=== PATIENT | female | born 1980 | race Caucasian/White ===

== ENCOUNTER 2017-02-27 03:38 | Emergency (ER) | payer SELFPAY ==
[2017-02-27 03:48] VITALS: BMI 38.0
--- NOTE | 2017-02-27 03:49 | DR.GENAD ---
HPI - PCP Primary Care Physician: RADHA - HPI Comment HPI Comment: PATIENT HAVE LEFT LOWER ABDOMINAL AND LOWER BACK PAIN THAT GOT WORSE TONIGHT. PAIN ASSOCIATED WITH NAUSEA. NO FEVER OS DYSURIA. - Complaint/Symptoms Chief Complaint Doctors Comments: LLQ ABD AND LOWER BACK PAIN TIMES SEVERAL HOURS. 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 - Family History History of Family Medical Conditions: Yes Family Medical History: Diabetes Mellitus, Cancer, [place], Coronary Artery Disease, Heart Failure, Sudden Cardiac , Hypertension - Social History Does patient currently use any type of tobacco product: No Have you used tobacco products in the last 12 months: No Type of Tobacco Use: None Does any household member use tobacco: No Alcohol Use: None Do you use any recreational Drugs:: No Lives With: Family Lives Where: Home - infectious screening In the last 2 months have you had wt loss of >10#?: NO Have you had fever, night sweats or hemotysis?: No Have you traveled outside the country in the last 6 months?: No Isolation: Standard ROS - Review of Systems Constitutional: No Symptoms Reported Eyes: No Symptoms Reported ENTM: No Symptoms Reported Respiratoy: No Symptoms Reported Cardiovascular: No Symptoms Reported Gastrointestinal/Abdominal: Abdominal Pain, Nausea Genitourinary: No Symptoms Reported. negative: Dysuria, Frequency, Hematuria Neurological: No Symptoms Reported Musculoskeletal: Back Pain, Muscle Pain, Back Integumentary: No Symptoms Reported Hematologic/Lymphatic: No Symptoms Reported Endocrine: No Symptoms Reported All Other Systems: Reviewed and Negative PE - Vital Signs Vitals: Temperature 98.2 F Pulse Rate [Left Brachial] 70 Pulse Rate 97 Respiratory Rate 14 Blood Pressure [Left Arm] 131/72 Blood Pressure 139/88 O2 Sat by Pulse Oximetry 94 - General Limitations: No Limitations General Appearance: Alert - Head Head Exam: Normal Inspection - Eyes Eye exam: Normal Appearance - ENT ENT Exam: Normal External Ear Exam External Ear Exam: Normal External Inspection TM/Canal Exam: Bilateral Normal Nose Exam: Normal Nose Exam Mouth Exam: Normal Inspection Throat Exam: Tonsillar Erythema - Neck Neck Exam: Normal Inspection - Chest Chest Inspection: Symmetric Chest Wall Rise - Respiratory Respiratory Exam: Normal Lung Sounds Bilat Respiratory Exam: Bilateral Clear to Auscultation - Cardiovascular Cardiovascular Exam: Regular Rate, Normal Rhythm, Normal Heart Sounds - Abdominal Exam Abdominal Exam: Normal Bowel Sounds, Soft, Tenderness Abdominal Tenderness: LLQ - Extremities Extremities Exam: Normal Inspection - Back Back Exam: Normal Inspection - Neurologic Neurological Exam: Alert, Oriented X3 - Psychiatric Psychiatric Exam: Normal Affect, Normal Mood - Skin Skin Exam: Normal Color MDM - Differential Diagnosis Differential Diagnosis: LLQ ABDOMINAL PAIN, LOWER BACK PAIN, Course - Treatment Treatment: SEE ORDERS. - Education/Counseling Education/Counseling: Patient, Family, Education Educated On: Treatment, Diagnosis, Needs for Follow Up ROR - Labs Reviewed Laboratory Results Reviewed?: Yes Result Diagrams: 02/27/17 03:55 02/27/17 03:55 Laboratory: WBC 11.2 X10^3/uL (3.6-10.0) H 02/27/17 03:55 RBC 5.01 X10^6/uL (3.5-5.4) 02/27/17 03:55 Hgb 12.4 g/dL (12.0-16.0) 02/27/17 03:55 Hct 37.4 % (36.0-47.0) 02/27/17 03:55 MCV 74.7 fL (80.0-100.0) L 02/27/17 03:55 MCH 24.7 pg (27.0-34.0) L 02/27/17 03:55 MCHC 33.0 g/dL (33.0-35.0) 02/27/17 03:55 RDW 16.2 % (11.6-16.5) 02/27/17 03:55 Plt Count 431 X10^3/uL (150.0-450.0) 02/27/17 03:55 Plt Count Comment Adequate (ADEQUATE) 02/27/17 03:55 MPV 7.8 fL (7.4-11.0) 02/27/17 03:55 Neut % 66.0 % (42.0-75.0) 02/27/17 03:55 Lymph % 26.6 % (21.0-51.0) 02/27/17 03:55 [place] % 5.1 % (0.0-13.0) 02/27/17 03:55 Eos % 1.4 % (0.9-2.9) 02/27/17 03:55 Baso % 0.9 % (0.2-1.0) 02/27/17 03:55 Neut # 7.4 x10^3/uL (2.2-4.8) H 02/27/17 03:55 Lymph # 3.0 X10^3/uL (1.3-2.9) H 02/27/17 03:55 [place] # 0.6 x10^3/uL (0.3-0.8) 02/27/17 03:55 Eos # 0.2 x10^3/uL (0.0-0.2) 02/27/17 03:55 Baso # 0.1 X10^3/uL (0.0-0.1) 02/27/17 03:55 Absolute Nucleated RBC 0.0 /100WBC 02/27/17 03:55 Plt Morphology Comment Normal (NORMAL) 02/27/17 03:55 RBC Morphology Normal (NORMAL) 02/27/17 03:55 Sodium 137 mmol/L (136-145) 02/27/17 03:55 Corrected Sodium 138 mmol/L (136-145) 02/27/17 03:55 Potassium 4.0 mmol/L (3.5-5.1) 02/27/17 03:55 Chloride 102 mmol/L (98-107) 02/27/17 03:55 Carbon Dioxide 25.9 mmol/L (21-32) 02/27/17 03:55 BUN 17 mg/dL (7-18) 02/27/17 03:55 Creatinine 0.80 mg/dL (0.55-1.02) 02/27/17 03:55 Est GFR (MDRD) Af Amer > 60 (>60) 02/27/17 03:55 Est GFR (MDRD) Non-Af > 60 (>60) 02/27/17 03:55 Glucose 162 mg/dL (65-99) H 02/27/17 03:55 Calcium 9.0 mg/dL (8.5-10.1) 02/27/17 03:55 Corrected Calcium TNP 02/27/17 03:55 Total Bilirubin 0.20 mg/dL (0.2-1.0) 02/27/17 03:55 AST 26 Units/L (15-37) 02/27/17 03:55 ALT 35 Units/L (12-78) 02/27/17 03:55 Alkaline Phosphatase 114 Units/L (46-116) 02/27/17 03:55 Total Protein 8.2 g/dL (6.4-8.2) 02/27/17 03:55 Albumin 3.8 g/dL (3.4-5.0) 02/27/17 03:55 Globulin 4.4 g/dL (2.5-4.5) 02/27/17 03:55 Albumin/Globulin Ratio 0.9 Ratio (1.1-2.1) L 02/27/17 03:55 Specimen Type Clean catch urine 02/27/17 03:53 Urine Color Yellow (YELLOW) 02/27/17 03:53 Urine Appearance Clear (CLEAR) 02/27/17 03:53 Urine pH 5.0 (5.0 - 8.0) 02/27/17 03:53 Ur Specific [place] 1.025 (1.000-1.030) 02/27/17 03:53 Urine Protein 1+ (NEGATIVE) 02/27/17 03:53 Urine Glucose (UA) Negative (NEGATIVE) 02/27/17 03:53 Urine Ketones Negative (NEGATIVE) 02/27/17 03:53 Urine Occult Blood 1+ (NEGATIVE) 02/27/17 03:53 Urine Nitrite Negative (NEGATIVE) 02/27/17 03:53 Urine Bilirubin Negative (NEGATIVE) 02/27/17 03:53 Urine Urobilinogen Normal (NORMAL) 02/27/17 03:53 Ur Leukocyte Esterase Negative (NEGATIVE) 02/27/17 03:53 Urine RBC 2-6 /HPF (NEGATIVE) 02/27/17 03:53 Urine WBC 0-3 /HPF (NEGATIVE) 02/27/17 03:53 Ur Squamous Epith Cells Few /HPF (NEGATIVE) 02/27/17 03:53 Calcium Oxalate Crystal Moderate /HPF (NEGATIVE) 02/27/17 03:53 Urine Bacteria Negative /HPF (NEGATIVE) 02/27/17 03:53 Ur Culture Indicated? No/not indicated 02/27/17 03:53 - XRAY XRAY Interpreted by: Radiologist XRAY Findings: REPORT DISCUSS WITH PATIENT. - Diagnosis Discharge Problem: Back pain - Discharge Plan Condition: Stable Prescriptions: Cyclobenzaprine HCl [FLEXERIL 10 MG *] 10 mg PO TID PRN #20 tab PRN Reason: Ibuprofen [MOTRIN TAB 800 MG *] 800 mg PO Q8H PRN #20 tab PRN Reason: Pain/Inflammation Tramadol HCl 50 mg PO Q8H PRN #20 tablet PRN Reason: - Follow ups/Referrals Follow ups/Referrals: NFD,None [Primary Care Provider] - 3 days Herman Calderon [STAFF PHYSICIAN] - 3 days - Instructions Instructions: Abdominal Pain, Adult, [id number], Back Pain, Adult, Easy-to- Read Additional Instructions: RETURN TO ED IF WORSE.
[2017-02-27] MEDS ORDERED: NS 1000 ML 1,000 ML IV ONE (03:50)
[2017-02-27] MEDS ORDERED: ZOFRAN INJ 4 MG VIAL IVP ONE (03:50)
[2017-02-27] MEDS ORDERED: TORADOL 30 MG VIAL IVP ONE (03:50)
[2017-02-27] MEDS ORDERED: NS 1000 ML 1,000 ML ONE (03:53)
[2017-02-27] MEDS ORDERED: ZOFRAN INJ 4 MG VIAL ONE (03:54)
[2017-02-27] MEDS ORDERED: TORADOL 30 MG VIAL ONE (03:54)
[2017-02-27 04:10] LABS: BILIRUBIN,URINE NEGATIVE (NEGATIVE); BLOOD/HEMOGLOBIN,URINE 1+ (NEGATIVE); GLUCOSE, URINE NEGATIVE (NEGATIVE); KETONES,URINE NEGATIVE (NEGATIVE); LEUKOCYTE ESTERASE ,URINE NEGATIVE (NEGATIVE); NITRITES,URINE NEGATIVE (NEGATIVE); PROTEIN,URINE 1+ (NEGATIVE); UROBILINOGEN,URINE NORMAL (NORMAL)
[2017-02-27 04:12] LABS: BASOPHILS # (AUTO) 0.1 X10^3/uL (0.0-0.1); BASOPHILS % (AUTO) 0.9 % (0.2-1.0); EOSINOPHILS # (AUTO) 0.2 x10^3/uL (0.0-0.2); EOSINOPHILS % (AUTO) 1.4 % (0.9-2.9); HEMATOCRIT 37.4 % (36.0-47.0); HEMOGLOBIN 12.4 g/dL (12.0-16.0); LYMPHOCYTES % (AUTO) 26.6 % (21.0-51.0); MEAN CORPUSCULAR HEMOGLOBIN 24.7 pg (27.0-34.0); MEAN CORPUSCULAR VOLUME 74.7 fL (80.0-100.0); MEAN PLATELET VOLUME 7.8 fL (7.4-11.0); MONOCYTES # (AUTO) 0.6 x10^3/uL (0.3-0.8); MONOCYTES % (AUTO) 5.1 % (0.0-13.0); NEUTROPHILS # (AUTO) 7.4 x10^3/uL (2.2-4.8); PLATELET COUNT 431 X10^3/uL (150.0-450.0); RED BLOOD COUNT 5.01 X10^6/uL (3.5-5.4); RED CELL DISTRIBUTION WIDTH 16.2 % (11.6-16.5); WHITE BLOOD COUNT 11.2 X10^3/uL (3.6-10.0)
[2017-02-27 04:18] LABS: ALANINE AMINOTRANSFERASE 35 Units/L (12-78); ALBUMIN 3.8 g/dL (3.4-5.0); ALKALINE PHOSPHATASE 114 Units/L (46-116); ASPARTATE AMINO TRANSFERASE 26 Units/L (15-37); BLOOD UREA NITROGEN 17 mg/dL (7-18); CARBON DIOXIDE 25.9 mmol/L (21-32); CHLORIDE 102 mmol/L (98-107); COR NA(FOR HYPERGLY) 138 mmol/L (136-145); SODIUM 137 mmol/L (136-145); TOTAL PROTEIN 8.2 g/dL (6.4-8.2); eGFR BLACK RACES > 60 (>60); eGFR NON BLACK RACES > 60 (>60)
[2017-02-27 04:19] LABS: APPEARANCE,URINE CLEAR (CLEAR); COLOR,URINE YELLOW (YELLOW)
[2017-02-27 04:20] LABS: BACTERIA,URINE NEGATIVE /HPF (NEGATIVE); CALCIUM OXALATE CRYSTALS,UR MODERATE /HPF (NEGATIVE); SQUAMOUS EPITHELIAL CELL,UR FEW /HPF (NEGATIVE)
[2017-02-27 04:27] LABS: PLATELET MORPHOLOGY COMMENT NORMAL (NORMAL)
[2017-02-27] MEDS ORDERED: DEMEROL INJ IVP ONE (04:33)
[2017-02-27] MEDS ORDERED: DEMEROL INJ ONE (04:34)
--- NOTE | 2017-02-27 05:23 | CT ---
CT abdomen and pelvis without contrast Indication: Left flank pain Comparison: None available Technique: Multiple axial images of the abdomen and pelvis were obtained from the lung bases to the pubic symphy sis without the administration of IV contrast. Findings: The visualized portions of the lung bases are unremarkable. The bony structures are grossly intact. Given the limitations of lack of IV contrast administration the spleen, pancreas, and adrenal glands are unremarkable in their CT appearance. Moderate hepatic steatosis. Prior cholecystectomy is noted. No evidence of stone within either kidney or ureter. No hydronephrosis is identified. No bowel wall thickening or bowel dilatation is present. The colon and rectum are unremarkable aside for suture ventral within the rectum.. The urinary bladder is grossly unremarkable. There is increa sed size of the left ovary. No definite mass or cyst. Scattered diverticular are also noted without e vidence of acute diverticulitis. There is approximate 2 mm peritoneal nodule anteriorly on axial imag e 50. Impression: 1.No acute inflammatory process identified within the abdomen or pelvis given limitations of a noncon trast examination. 2. Hepatic steatosis without focal hepatic lesion. 3. Mildly increased size of left adnexal potentially representing a cyst however if there is left low er quadrant pain correlation with pelvic sonogram would be indicated. 4. Indeterminate peritoneal nodule measuring approximately 10 mm, attention on follow up examinations is recommended. Reported By:
[2017-02-27] MEDS ORDERED: DILAUDID INJ IVP ONE (05:53)
[2017-02-27] MEDS ORDERED: DILAUDID INJ ONE (05:54)
[2017-02-27 07:04] VITALS: BP 154/68
== END 2017-02-27 07:04 | disposition home or self-care (01) ==
LOC: ER 03:38
DX: M54.5 Low back pain (principal); R10.32 Left lower quadrant pain; K76.0 Fatty (change of) liver, not elsewhere classified
CPT/HCPCS: 36415; 74176; 80053; 81001; 85025; 96365; 96374; 96375; 99283; A4222; J1170; J1885; J2175; J2405

== ENCOUNTER 2017-04-15 15:28 | Emergency (ER) | payer SELFPAY ==
[2017-04-15 15:32] VITALS: BP 126/78; BMI 36.8
[2017-04-15] MEDS ORDERED: TORADOL 30 MG VIAL IVP ONE (15:37)
[2017-04-15] MEDS ORDERED: NS 1000 ML 1,000 ML IV ONE (15:37)
--- NOTE | 2017-04-15 15:39 | DR.GENAD ---
HPI - PCP Primary Care Physician: NFD - Complaint/Symptoms Chief Complaint Doctors Comments: Patient presents with complaint of cough, congestion , bodyaches of one days duration. Chief Complaint:: PT. C/O COUGH, BODY ACHES, FEVER, HEADACHE. 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 - Family History History of Family Medical Conditions: Yes Family Medical History: Diabetes Mellitus, Cancer, [place], Coronary Artery Disease, Heart Failure, Sudden Cardiac , Hypertension - Social History Does patient currently use any type of tobacco product: No Have you used tobacco products in the last 12 months: No Type of Tobacco Use: None Does any household member use tobacco: No Alcohol Use: None Do you use any recreational Drugs:: No Lives With: Spouse Lives Where: Home - infectious screening In the last 2 months have you had wt loss of >10#?: NO Have you had fever, night sweats or hemotysis?: No Have you traveled outside the country in the last 6 months?: No Isolation: Standard ROS - Review of Systems Eyes: No Symptoms Reported ENTM: No Symptoms Reported Respiratoy: No Symptoms Reported Cardiovascular: No Symptoms Reported Gastrointestinal/Abdominal: No Symptoms Reported Genitourinary: No Symptoms Reported Neurological: No Symptoms Reported Musculoskeletal: No Symptoms Reported Integumentary: No Symptoms Reported Hematologic/Lymphatic: No Symptoms Reported Endocrine: No Symptoms Reported Psychiatric: No Symptoms Reported All Other Systems: Reviewed and Negative PE - Vital Signs Vitals: Temperature 97.1 F Pulse Rate 75 Respiratory Rate 17 Blood Pressure [Left Arm] 154/68 Blood Pressure 126/78 O2 Sat by Pulse Oximetry 95 - General General Appearance: Alert - Head Head Exam: Normal Inspection - Eyes Eye exam: Normal Appearance - ENT ENT Exam: Normal Exam External Ear Exam: Normal External Inspection TM/Canal Exam: Bilateral Normal Nose Exam: Normal Nose Exam Mouth Exam: Normal Inspection Throat Exam: Normal Inspection - Neck Neck Exam: Normal Inspection, Full ROM - Chest Chest Inspection: Normal Inspection - Respiratory Respiratory Exam: Normal Lung Sounds Bilat Respiratory Exam: Bilateral Clear to Auscultation - Cardiovascular Cardiovascular Exam: Regular Rate, Normal Rhythm - Abdominal Exam Abdominal Exam: Normal Inspection, Normal Bowel Sounds Abdominal Tenderness: negative: RUQ, RLQ, LUQ, LLQ, Epigastrium, Suprapubic, Diffuse, Mild, Moderate, Severe, Other - Extremities Extremities Exam: Normal Inspection - Back Back Exam: Normal Inspection - Neurologic Neurological Exam: Alert, Oriented X3, CN II-XII Intact - Psychiatric Psychiatric Exam: Normal Affect, Normal Mood - Skin Skin Exam: Warm, Dry, Intact Course - Reevaluation 1st: Improved - Education/Counseling Educated On: Treatment, Diagnosis, Prognosis, Needs for Follow Up ROR - Labs Reviewed Laboratory Results Reviewed?: Yes (Influenza A positive) Result Diagrams: 04/15/17 15:44 04/15/17 15:44 Laboratory: WBC 3.7 X10^3/uL (3.6-10.0) 04/15/17 15:44 RBC 4.90 X10^6/uL (3.5-5.4) 04/15/17 15:44 Hgb 11.8 g/dL (12.0-16.0) L 04/15/17 15:44 Hct 36.4 % (36.0-47.0) 04/15/17 15:44 MCV 74.2 fL (80.0-100.0) L 04/15/17 15:44 MCH 24.0 pg (27.0-34.0) L 04/15/17 15:44 MCHC 32.3 g/dL (33.0-35.0) L 04/15/17 15:44 RDW 16.8 % (11.6-16.5) H 04/15/17 15:44 Plt Count 348 X10^3/uL (150.0-450.0) 04/15/17 15:44 Plt Count Comment Adequate (ADEQUATE) 04/15/17 15:44 MPV 7.3 fL (7.4-11.0) L 04/15/17 15:44 Neut % 46.1 % (42.0-75.0) 04/15/17 15:44 Lymph % 35.1 % (21.0-51.0) 04/15/17 15:44 [place] % 15.6 % (0.0-13.0) H 04/15/17 15:44 Eos % 2.0 % (0.9-2.9) 04/15/17 15:44 Baso % 1.2 % (0.2-1.0) H 04/15/17 15:44 Neut # 1.7 x10^3/uL (2.2-4.8) L 04/15/17 15:44 Lymph # 1.3 X10^3/uL (1.3-2.9) 04/15/17 15:44 [place] # 0.6 x10^3/uL (0.3-0.8) 04/15/17 15:44 Eos # 0.1 x10^3/uL (0.0-0.2) 04/15/17 15:44 Baso # 0.0 X10^3/uL (0.0-0.1) 04/15/17 15:44 Absolute Nucleated RBC 0.0 /100WBC 04/15/17 15:44 Plt Morphology Comment Normal (NORMAL) 04/15/17 15:44 RBC Morphology Abnormal (NORMAL) A 04/15/17 15:44 Hypochromasia Slight A 04/15/17 15:44 Anisocytosis Slight A 04/15/17 15:44 Microcytosis Slight A 04/15/17 15:44 Sodium 142 mmol/L (136-145) 04/15/17 15:44 Corrected Sodium 142 mmol/L (136-145) 04/15/17 15:44 Potassium 3.8 mmol/L (3.5-5.1) 04/15/17 15:44 Chloride 105 mmol/L (98-107) 04/15/17 15:44 Carbon Dioxide 26.6 mmol/L (21-32) 04/15/17 15:44 BUN 17 mg/dL (7-18) 04/15/17 15:44 Creatinine 0.77 mg/dL (0.55-1.02) 04/15/17 15:44 Est GFR (MDRD) Af Amer > 60 (>60) 04/15/17 15:44 Est GFR (MDRD) Non-Af > 60 (>60) 04/15/17 15:44 Glucose 111 mg/dL (65-99) H 04/15/17 15:44 Calcium 8.6 mg/dL (8.5-10.1) 04/15/17 15:44 Corrected Calcium TNP 04/15/17 15:44 Total Bilirubin 0.30 mg/dL (0.2-1.0) 04/15/17 15:44 AST 30 Units/L (15-37) 04/15/17 15:44 ALT 55 Units/L (12-78) 04/15/17 15:44 Alkaline Phosphatase 103 Units/L (46-116) 04/15/17 15:44 Total Protein 7.7 g/dL (6.4-8.2) 04/15/17 15:44 Albumin 3.9 g/dL (3.4-5.0) 04/15/17 15:44 Globulin 3.8 g/dL (2.5-4.5) 04/15/17 15:44 Albumin/Globulin Ratio 1.0 Ratio (1.1-2.1) L 04/15/17 15:44 Influenza Type A (PCR) Positive (NEGATIVE) A 04/15/17 16:01 Influenza Type B (PCR) Negative (NEGATIVE) 04/15/17 16:01 Streptococcus Screen Negative (NEGATIVE) 04/15/17 16:01 - XRAY XRAY Interpreted by: Radiologist (Chest: no significant change no acute disease. ) - Diagnosis Discharge Problem: Influenza A - Discharge Plan Condition: Stable - Follow ups/Referrals Follow ups/Referrals: NFD,None [Primary Care Provider] - 3 days - Instructions
[2017-04-15] MEDS ORDERED: NS 1000 ML 1,000 ML ONE (15:50)
[2017-04-15] MEDS ORDERED: TORADOL 30 MG VIAL ONE (15:50)
[2017-04-15 15:59] LABS: BASOPHILS % (AUTO) 1.2 % (0.2-1.0); EOSINOPHILS # (AUTO) 0.1 x10^3/uL (0.0-0.2); HEMATOCRIT 36.4 % (36.0-47.0); HEMOGLOBIN 11.8 g/dL (12.0-16.0); LYMPHOCYTES # (AUTO) 1.3 X10^3/uL (1.3-2.9); LYMPHOCYTES % (AUTO) 35.1 % (21.0-51.0); MEAN CORPUSCULAR HGB CONC 32.3 g/dL (33.0-35.0); MEAN CORPUSCULAR VOLUME 74.2 fL (80.0-100.0); MEAN PLATELET VOLUME 7.3 fL (7.4-11.0); MONOCYTES # (AUTO) 0.6 x10^3/uL (0.3-0.8); MONOCYTES % (AUTO) 15.6 % (0.0-13.0); NEUTROPHILS # (AUTO) 1.7 x10^3/uL (2.2-4.8); NEUTROPHILS % (AUTO) 46.1 % (42.0-75.0); PLATELET COUNT 348 X10^3/uL (150.0-450.0); RED CELL DISTRIBUTION WIDTH 16.8 % (11.6-16.5); WHITE BLOOD COUNT 3.7 X10^3/uL (3.6-10.0)
[2017-04-15 16:10] LABS: ALANINE AMINOTRANSFERASE 55 Units/L (12-78); ALBUMIN 3.9 g/dL (3.4-5.0); ALKALINE PHOSPHATASE 103 Units/L (46-116); ASPARTATE AMINO TRANSFERASE 30 Units/L (15-37); BLOOD UREA NITROGEN 17 mg/dL (7-18); CALCIUM 8.6 mg/dL (8.5-10.1); CARBON DIOXIDE 26.6 mmol/L (21-32); CHLORIDE 105 mmol/L (98-107); COR NA(FOR HYPERGLY) 142 mmol/L (136-145); CREATININE 0.77 mg/dL (0.55-1.02); SODIUM 142 mmol/L (136-145); TOTAL PROTEIN 7.7 g/dL (6.4-8.2); eGFR BLACK RACES > 60 (>60); eGFR NON BLACK RACES > 60 (>60)
[2017-04-15 16:16] LABS: ANISOCYTOSIS SLIGHT; HYPOCHROMASIA SLIGHT; MICROCYTOSIS SLIGHT; PLATELET MORPHOLOGY COMMENT NORMAL (NORMAL)
--- NOTE | 2017-04-15 16:42 | RAD ---
Examination: Portable AP chest History: Cough and flu and congestion Comparison reference 07/03/2015. Findings: Continued normal heart size with clear lungs. Relative pulmonary hypo inflation. No pneumot horax or pleural fluid. Impression: No significant change; no acute disease. Reported By:
== END 2017-04-15 17:00 | disposition home or self-care (01) ==
LOC: ER 15:36
DX: J11.1 Influenza due to unidentified influenza virus with other respiratory manifestations (principal)
CPT/HCPCS: 36415; 71010; 80053; 85025; 87070; 87502; 87880; 96365; 96374; 99283; A4222; J1885

== ENCOUNTER 2017-08-29 16:06 | Emergency (ER) | payer BC ==
[2017-08-29 16:10] VITALS: BMI 35.2
--- NOTE | 2017-08-29 16:27 | DR.GENAD ---
HPI - PCP Primary Care Physician: marlyn - Complaint/Symptoms Chief Complaint Doctors Comments: While at the local [facility] at 1500 hrs today. she experienced a stabbing/shooting pain in the lt. side of her chest through her back. In intensity, she rated that an 8/10 on a scale of 0 to 10. She is chest pain free as of now. 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 - Family History History of Family Medical Conditions: Yes Family Medical History: Diabetes Mellitus, Cancer, [place], Coronary Artery Disease, Heart Failure, Sudden Cardiac , Hypertension - Social History Does patient currently use any type of tobacco product: No Have you used tobacco products in the last 12 months: No Type of Tobacco Use: None Does any household member use tobacco: No Alcohol Use: None Do you use any recreational Drugs:: No Lives With: Family Lives Where: Home - infectious screening In the last 2 months have you had wt loss of >10#?: NO Have you had fever, night sweats or hemotysis?: No Have you traveled outside the country in the last 6 months?: No Isolation: Standard ROS - Review of Systems Constitutional: No Symptoms Reported Eyes: No Symptoms Reported ENTM: No Symptoms Reported Respiratoy: No Symptoms Reported Cardiovascular: Chest Pain (lt. side) Gastrointestinal/Abdominal: No Symptoms Reported Genitourinary: No Symptoms Reported Neurological: No Symptoms Reported Musculoskeletal: No Symptoms Reported Integumentary: No Symptoms Reported Hematologic/Lymphatic: No Symptoms Reported Endocrine: No Symptoms Reported Psychiatric: No Symptoms Reported PE - Vital Signs Vitals: Temperature 98.9 F Pulse Rate [Apical] 84 Pulse Rate 87 Respiratory Rate 19 Blood Pressure [Left Arm] 123/78 Blood Pressure 127/76 O2 Sat by Pulse Oximetry 98 - General Limitations: No Limitations General Appearance: Alert, In No Apparent Distress - Head Head Exam: Normal Inspection - Eyes Eye exam: Normal Appearance - ENT ENT Exam: Normal Exam - Neck Neck Exam: Normal Inspection - Chest Chest Inspection: Normal Inspection - Respiratory Respiratory Exam: Normal Lung Sounds Bilat - Cardiovascular Cardiovascular Exam: Regular Rate, Normal Rhythm - Abdominal Exam Abdominal Exam: Normal Inspection, Normal Bowel Sounds, Soft - Extremities Extremities Exam: Normal Inspection - Back Back Exam: Normal Inspection - Neurologic Neurological Exam: Alert, Oriented X3 - Psychiatric Psychiatric Exam: Normal Affect, Normal Mood - Skin Skin Exam: Warm, Dry, Intact, Normal Color Course - Reevaluation 1st: Improved 2nd: Improved - Education/Counseling Education/Counseling: Patient, Family, Education, Counseling Educated On: Treatment, Diagnosis, Prognosis, Needs for Follow Up ROR - Labs Reviewed Result Diagrams: 08/29/17 16:35 08/29/17 16:35 Laboratory: WBC 7.7 X10^3/uL (3.6-10.0) 08/29/17 16:35 RBC 4.71 X10^6/uL (3.5-5.4) 08/29/17 16:35 Hgb 11.5 g/dL (12.0-16.0) L 08/29/17 16:35 Hct 35.6 % (36.0-47.0) L 08/29/17 16:35 MCV 75.5 fL (80.0-100.0) L 08/29/17 16:35 MCH 24.4 pg (27.0-34.0) L 08/29/17 16:35 MCHC 32.3 g/dL (33.0-35.0) L 08/29/17 16:35 RDW 15.2 % (11.6-16.5) 08/29/17 16:35 Plt Count 372 X10^3/uL (150.0-450.0) 08/29/17 16:35 Plt Count Comment Adequate (ADEQUATE) 08/29/17 16:35 MPV 7.7 fL (7.4-11.0) 08/29/17 16:35 Neut % (Auto) 67.0 % (42.0-75.0) 08/29/17 16:35 Lymph % (Auto) 23.9 % (21.0-51.0) 08/29/17 16:35 [place] % (Auto) 6.1 % (0.0-13.0) 08/29/17 16:35 Eos % (Auto) 2.1 % (0.9-2.9) 08/29/17 16:35 Baso % (Auto) 0.9 % (0.2-1.0) 08/29/17 16:35 Neut # (Auto) 5.2 x10^3/uL (2.2-4.8) H 08/29/17 16:35 Lymph # (Auto) 1.9 X10^3/uL (1.3-2.9) 08/29/17 16:35 [place] # (Auto) 0.5 x10^3/uL (0.3-0.8) 08/29/17 16:35 Eos # (Auto) 0.2 x10^3/uL (0.0-0.2) 08/29/17 16:35 Baso # (Auto) 0.1 X10^3/uL (0.0-0.1) 08/29/17 16:35 Absolute Nucleated RBC 0.0 /100WBC 08/29/17 16:35 Plt Morphology Comment Normal (NORMAL) 08/29/17 16:35 RBC Morphology Normal (NORMAL) 08/29/17 16:35 Hypochromasia 1+ A 08/29/17 16:35 Anisocytosis 1+ A 08/29/17 16:35 INR Target Range - 08/29/17 16:35 INR 0.98 (0.8-1.3) 08/29/17 16:35 APTT 28.6 SECONDS (22.9-36.5) 08/29/17 16:35 PTT Comment - 08/29/17 16:35 Sodium 138 mmol/L (136-145) 08/29/17 16:35 Corrected Sodium 141 mmol/L (136-145) 08/29/17 16:35 Potassium 3.7 mmol/L (3.5-5.1) 08/29/17 16:35 Chloride 102 mmol/L (98-107) 08/29/17 16:35 Carbon Dioxide 25.5 mmol/L (21-32) 08/29/17 16:35 BUN 14 mg/dL (7-18) 08/29/17 16:35 Creatinine 0.94 mg/dL (0.55-1.02) 08/29/17 16:35 Est GFR (MDRD) Af Amer > 60 (>60) 08/29/17 16:35 Est GFR (MDRD) Non-Af > 60 (>60) 08/29/17 16:35 Glucose 241 mg/dL (65-99) H 08/29/17 16:35 Calcium 8.6 mg/dL (8.5-10.1) 08/29/17 16:35 Troponin I < 0.02 ng/mL (0-1.5) 08/29/17 16:35 - EKG Rate: 89 [place]: Normal Rhythm: NSR Block: None Hypertrophy: None ST: Normal - Diagnosis Discharge Problem: Chest pain of unknown etiology, Abnormal Q waves on electrocardiogram - Discharge Plan Disposition: HOME, SELF-CARE Condition: Stable - Follow ups/Referrals Follow ups/Referrals: Herman Calderon [Primary Care Provider] - 3 days - Instructions Instructions: Nonspecific Chest Pain, [id number]
--- NOTE | 2017-08-29 16:43 | RAD ---
Examination: AP chest History: Chest wall pain Comparison reference 04/15/2017 Findings: Continued normal heart size with grossly clear lungs although pulmonary volumes are moderat juliet reduced. There is no evidence for consolidation, pleural effusion or extrapulmonary air. Impression: Partial expiratory AP chest, no acute process demonstrated. Reported By:
[2017-08-29 17:00] LABS: BASOPHILS # (AUTO) 0.1 X10^3/uL (0.0-0.1); BASOPHILS % (AUTO) 0.9 % (0.2-1.0); EOSINOPHILS # (AUTO) 0.2 x10^3/uL (0.0-0.2); EOSINOPHILS % (AUTO) 2.1 % (0.9-2.9); HEMATOCRIT 35.6 % (36.0-47.0); HEMOGLOBIN 11.5 g/dL (12.0-16.0); LYMPHOCYTES # (AUTO) 1.9 X10^3/uL (1.3-2.9); LYMPHOCYTES % (AUTO) 23.9 % (21.0-51.0); MEAN CORPUSCULAR HEMOGLOBIN 24.4 pg (27.0-34.0); MEAN CORPUSCULAR HGB CONC 32.3 g/dL (33.0-35.0); MEAN CORPUSCULAR VOLUME 75.5 fL (80.0-100.0); MEAN PLATELET VOLUME 7.7 fL (7.4-11.0); MONOCYTES # (AUTO) 0.5 x10^3/uL (0.3-0.8); MONOCYTES % (AUTO) 6.1 % (0.0-13.0); NEUTROPHILS # (AUTO) 5.2 x10^3/uL (2.2-4.8); PLATELET COUNT 372 X10^3/uL (150.0-450.0); RED BLOOD COUNT 4.71 X10^6/uL (3.5-5.4); RED CELL DISTRIBUTION WIDTH 15.2 % (11.6-16.5); WHITE BLOOD COUNT 7.7 X10^3/uL (3.6-10.0)
[2017-08-29 17:12] LABS: BLOOD UREA NITROGEN 14 mg/dL (7-18); CALCIUM 8.6 mg/dL (8.5-10.1); CARBON DIOXIDE 25.5 mmol/L (21-32); CHLORIDE 102 mmol/L (98-107); COR NA(FOR HYPERGLY) 141 mmol/L (136-145); CREATININE 0.94 mg/dL (0.55-1.02); SODIUM 138 mmol/L (136-145); TROPONIN I < 0.02 ng/mL (0-1.5); eGFR BLACK RACES > 60 (>60); eGFR NON BLACK RACES > 60 (>60)
[2017-08-29 17:16] LABS: ALANINE AMINOTRANSFERASE 54 Units/L (12-78); ALBUMIN 3.6 g/dL (3.4-5.0); ALKALINE PHOSPHATASE 111 Units/L (46-116); ANISOCYTOSIS 1+; ASPARTATE AMINO TRANSFERASE 47 Units/L (15-37); CKMB % 1.2 % (<4); CREATINE KINASE 107 Units/L (26-192); CREATINE KINASE MB 1.3 ng/mL (0-4.0); HYPOCHROMASIA 1+; MAGNESIUM 1.5 mg/dL (1.7-2.9); PLATELET MORPHOLOGY COMMENT NORMAL (NORMAL); TOTAL PROTEIN 7.9 g/dL (6.4-8.2)
[2017-08-29 17:29] VITALS: BP 138/78
== END 2017-08-29 17:33 | disposition home or self-care (01) ==
LOC: ER 16:20
DX: R07.89 Other chest pain (principal); R94.31 Abnormal electrocardiogram [ECG] [EKG]
CPT/HCPCS: 36415; 71045; 80053; 82550; 82553; 83735; 84484; 85025; 85610; 85730; 93005; 93010; 96365; 99283; 99284; A4222